=== PATIENT | female | born 1995 | race Caucasian/White ===

== ENCOUNTER 2025-02-17 18:32 | Emergency (ER) | payer BC, SELFPAY ==
--- NOTE | 2025-02-17 18:35 | ED_ITS ---
HPI - Nausea/Vomiting/Diarrhea General Chief complaint: Nausea/Vomiting/Diarrhea Stated complaint: DIARRHEA Time Seen by Provider: 02/17/25 18:34 Source: patient Mode of arrival: ambulatory Limitations: no limitations History of Present Illness HPI Narrative: Patient is a 29-year-old female who presents with diarrhea for 4 days. Patient states today diarrhea has decreased to 3-4 episodes only verses every 1-2 hours the last few days. Patient has not had any nausea or vomiting. Has had fever and chills. Has been has the same symptoms. Related Data Allergies Allergy/AdvReac Type Severity Reaction Status Date / Time No Known Allergies Allergy Verified 02/17/25 18:43 Review of Systems Review of Systems: All systems reviewed & are unremarkable except as noted in HPI and below Constitutional: Constitutional: Denies body ache(s), Reports chills, Denies fatigue, Reports fever(s), Denies headache(s), Denies malaise and Denies weakness Eyes: Eyes: Denies blurry vision, Denies irritation and Denies loss of vision ENT: Denies otalgia, Denies headache(s), Denies nasal discharge, Denies sinus pain and Denies sore throat Cardiovascular: Cardiovascular: Denies chest pain, Denies irregular heart rhythm and Denies dyspnea Respiratory: Respiratory: Denies dyspnea Gastrointestinal: Gastrointestinal: Denies abdominal pain, Denies melena, Denies hematochezia, Reports diarrhea, Denies nausea and Denies vomiting Musculoskeletal: Musculoskeletal: Denies back pain, Denies myalgias and Denies arthralgias Integumentary/Breasts: Skin/Breast: Denies pruritus and Denies rash Neurologic: Denies headache(s), Denies loss of vision and Denies weakness Psychiatric: Psychiatric: Reports no additional psychiatric complaints Endocrine: Endocrine: Denies fatigue PMFSH Family History Family History Sibling Malignant neoplasm of prostate Patient's brother is Grandparent Family history of lung cancer Family history of malignant neoplasm of breast Mother Family history of heart disease in male family member before age 55 Other Family history of lymphoma Social History Social History Smoking status: Never smoker Alcohol intake: never Comments At time of signature, agree with nursing past medical, surgical, social and family history. There is no relevant family history pertinent to the presenting complaint. Exam Const: General: cooperative, healthy appearing, comfortable, no acute distress and well nourished Nutritional Appearance: well nourished Orientation/consciousness: patient oriented x3 Limitations: no limitations HENMT: Head: normal to inspection, normocephalic and atraumatic Ears: hearing grossly normal bilaterally and external ears normal Face/Nose/Sinus: Normal external nose present, normal facial exam and face symmetric Face and sinus: normal facial exam and face symmetric Mouth: Yes lip normal Eyes: General: appearance normal, both eyes and all related structures Alignment and Position: alignment normal and position normal Periorbital: periorbital findings normal Eyelids: eyelids normal Pupils: Equal, round and reactive pupils present EOM: EOMs intact bilaterally Neck: Neck: normal visual inspection, full ROM and supple Chest: Chest palpation & inspection: normal inspection of the chest Resp: Effort & Inspection: normal respiratory effort and able to speak in complete sentences Auscultation: clear to auscultation bilaterally Cardio: Rate: regular rate Rhythm: regular rhythm Heart sounds: S1 normal heart sound present and S2 normal heart sound present GI: Inspection: normal to inspection Skin: General skin exam: normal color and no rashes or lesions noted Neuro: General: patient oriented x3 and moves all extremities Cranial nerves: Yes Equal, round and reactive pupils present Speech: normal speech Gait exam (Neuro): Normal gait present Extrem: General: normal to inspection, full ROM and no edema Psych: Appearance: grossly normal and well kempt Mental Status: mental status grossly normal Speech and movement: Normal speech and movement present Affect: normal affect Attitude: cooperative Thought process: Normal thought process present Course Course Emergency Course: Patient is aware of diagnosis, understands and agrees to treatment plan. Anticipatory guidance given. Patient agrees to follow-up as directed and is aware of reasons to seek care at the emergency department. Portions of this record may have been created with voice recognition software Level of Care: Express Care Visit Vital Signs Vital signs: Reviewed MDM - Nausea/Vomiting/Diarrhea MDM Narrative Medical decision making narrative: Will prescribe Bentyl to help with abdominal cramping. Patient states she took 1 dose Imodium but encourage patient to continue to take Imodium or frequently as she has now showed the virus. Encourage electrolyte intake. Pt well hydrated appearing, in no respiratory distress, hemodynamically stable. Recommend supportive care. The patient is stable at time of discharge the clinical impression was discussed and the patient was given the opportunity to ask questions, which were addressed as completely as possible given the information available at present. Anticipatory guidance and return to care precautions were discussed and the importance of primary care follow-up was stressed and encouraged. The patient voiced understanding of the plan, indications to return, and the need for follow-up. Exam findings show no acute concerns or changes Patient is appropriate for outpatient treatment and follow-up. Differential Diagnosis Differential diagnosis: Likely traveler's diarrhea, food poisoning, gastroenteritis and dehydration Discharge Plan Discharge Clinical Impression: Gastroenteritis Patient Disposition: Home Condition: Stable Instructions: Gastroenteritis (ED) Additional Instructions: Stay hydrated. Take small sips of fluid containing electrolytes frequently(Body Guthrie, Gatorade, Powerade, liquid IV). Eat small meals that her very bland including bananas, applesauce, rice, toast, boiled or grilled chicken, soup. Do not eat anything fried, spicy or overly acidic. You should go to the hospital if you experience return of persistent nausea and vomiting that does not resolve and does not allow you to tolerate any food or fluids, persistent fevers for greater than 2-3 more days, increasing abdominal pain that persists despite medications, persistent diarrhea, dizziness, syncope (fainting), or for any other concerns. Patient Language: Citizen Of [place] Prescriptions: New dicyclomine 20 mg tablet 20 mg PO QID 7 Days Qty: 28 0RF Follow-up/Referrals: Ruben Alcantara MD [Physician, Family Practice] - 3 Days Referral Note: Establish care Time of Disposition: 18:59
[2025-02-17 18:43] VITALS: BP 120/83; PULSE 103; RESP 16; TEMP 36.4; O2SAT 100
== END 2025-02-17 19:03 | disposition home or self-care (01) ==
PROVIDERS: Emergency Provider Nurse Practitioner Family
DX: K52.9 Noninfective gastroenteritis and colitis, unspecified (principal)
CPT/HCPCS: 99203; G0463

== ENCOUNTER 2025-02-24 19:28 | Emergency (ER) | payer BC, SELFPAY ==
[2025-02-24] VITALS (23 sets, daily range): BP systolic 123–147; BP diastolic 70–102; PULSE 97–155; RESP 18–35; TEMP 37–38.2; O2SAT 96–100
--- NOTE | ~2025-02-24 | XR_ITS ---
XR chest 2V HOSTORY: fever COMPARISON:[ None] FINDINGS: Frontal and lateral views of the chest were obtained. The lungs are clear. The heart size is normal in size. Pulmonary vasculature is unremarkable. Osseous structures are intact. IMPRESSION: No acute lung findings.] [ ] Reviewed, dictated and finalized at location S.
--- NOTE | ~2025-02-24 | CT_ITS ---
CT abdomen pelvis w con INDICATION:fever, abd pain, flank pain . COMPARISON: None. TECHNIQUE: Axial images of the abdomen and pelvis were obtained following infusion of 100 mL Isovue 300. Dose optimization technique was utilized. FINDINGS: The lung bases are clear. The liver parenchyma is unremarkable. No intrahepatic mass or ductal dilatation is evident. The gallbladder is unremarkable. The pancreas and spleen are normal in appearance. The adrenal glands are symmetric in size. The kidneys demonstrate symmetric uptake and excretion of contrast. No cystic mass is evident. There is no solid mass. There is no hydronephrosis. Evaluation of the stomach and bowel loops are limited due to lack of oral contrast. There are no bowel obstruction. Appendix is not seen. The bladder and rectum are normal. Endometrium is thickened. There are fluid the pelvis. Cystic right adnexa measures 2.6 cm. No free intraperitoneal fluid or air is evident. Multiple pericecal lymph nodes are noted. The aorta, visceral vessels and renal arteries demonstrate normal caliber and patency. The lower thoracic and lumbar vertebrae are in normal alignment. IMPRESSION: Appendix is not visualized. Multiple pericecal lymph nodes are noted. There free fluid in the pelvis with a cystic right adnexa measuring 2.[address] scans at this facility are performed using low dose modulation techniques as appropriate to perform exam including the following: automated exposure control; use of iterative reconstruction technique; adjustment of the mA and/or kV according to patient size (this includes techniques or standardized protocols for targeted exams where dose is matched to indication/reason for exam). Reviewed, dictated and finalized at location S. IMPRESSION: Appendix is not visualized. Multiple pericecal lymph nodes are noted. There free fluid in the pelvis with a cystic right adnexa measuring 2.[address] scans at this facility are performed using low dose modulation techniqu es as appropriate to perform exam including the following: automated exposure c ontrol; use of iterative reconstruction technique; adjustment of the mA and/or kV according to patient size (this includes techniques or standardized protocol s for targeted exams where dose is matched to indication/reason for exam).
--- OUTSIDE RECORDS SUMMARY | 2025-02-24 19:31 | XMS_ITS | Clinical Summary ---
Author Organization [facility] Address [address] [place] [address] Care Team Providers Care Vice President Of Operations Name Role Phone Dana Mata MD Unavailable [phone] Source Comments [facility],non-owned Affiliates and Associated Physician Practices is amultiple site organization consisting of ambulatory clinics and hospital sitesin [place], [place], [place] and [place]. This disclosure is being madepursuant to the Care Everywhere program and may not contain all information available regarding this patient. Last updated 18.[facility] Allergies No known active allergies Medications * Be aware that medications may not be up to date on this document. Alwaysverify current medications with the patient. norethin-eth estradiol-FE () 1.5-30 MG-MCG tablet Take 1 (one) tablet by mouth once daily 84 tablet 4 08/12/2022 Active escitalopram (Lexapro) 10 MG tablet Take 1 (one) tablet by mouth once daily 90 tablet 11/27/2023 Active Active Problems Problem Noted Date Diagnosed Date Anxiety 08/15/2021 Resolved Problems Problem Noted Date Diagnosed Date Resolved Date Cough 07/31/2009 08/15/2021 Immunizations Immunization Administration Dates Next Due HPV VACCINE 11/09/2019,07/10/2019,05/11/2009 INFLUENZA VACCINE, QUADR. (F LUZONE; FLULAVAL; FLUARIX; AFLURIA QUADRIVALENT; 6MO+), 0.5 ML (IIV4) 03/13/2020 Family History Medical History Relation Name Comments Allergies Father Cancer - Ovarian Maternal Aunt 1 Lymphoma Maternal Aunt 2 Lung Disease Maternal Aunt 3 Asthma Maternal Grandmother CVA Maternal Grandmother Cancer - Prostate Maternal Uncle Allergies Mother Arthritis - Rheumatoid Mother Autoimmune Disease Mother Fibromyal stuart Hypertension Mother Lupus Mother Allergies Other cousin Asthma Other cousin CAD (Coronary Artery Disease) Paternal Grandfather Cancer - Bladder Paternal Grandfather Diabetes - Type 2 Paternal Grandfather Emphysema Paternal Grandfather High Cholesterol Paternal Grandmother Other - Defects Neg Hx Relation Name Status Comments Father Alive Maternal Aunt 1 Maternal Aunt 2 Maternal Aunt 3 Maternal Grandfather Maternal Grandmother Maternal Uncle Mother Alive Other cousin Alive Paternal Grandfather Paternal Grandmother Social History Tobacco Use Types Packs/Day Years Used Date Smoking Tobacco: Never Smokeless Tobacco: Never Alcohol Use Standard Drinks/Week Comments Not Currently 0 (1 standard drink = 0.6 oz pur e alcohol) AUDIT-C Answer Date Recorded Q1: How often do you have a drink containing alc ohol? 2-4 times a month 03/13/2020 Q2: How many drinks containi ng alcohol do you have on a typical day when you are drinking? 3 or 4 03/13/2020 Q3: How often do you have si x or more drinks on one occasion? 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 Not on file Not on file Not on file Last Filed Vital Signs Vital Sign Reading Time Taken Comments Blood Pressure 102/78 08/12/2022 10:06 AM CDT Pulse 90 08/22/2009 9:35 AM CDT Temperature - - Respiratory Rate 20 08/22/2009 9:35 AM CDT Oxygen Saturation 100% 08/22/2009 9:35 AM CDT Inhaled Oxygen Concentration - - Weight 104.8 kg (231 lb) 08/12/2022 10:06 AM CDT Height 167.6 cm (5' 6) 08/12/2022 10:06 AM CDT Body Mass Index 37.28 08/12/2022 10:06 AM CDT Plan of Treatment Health Maintenance Due Date Last Done Comments HIV SCREENING 2009 DTAP/TDAP/TD VACCINES (1 - Tdap) 2013 HEPATITIS B VACCINE (1 of 3 - 19+ 3-dose series) 2013 DEPRESSION SCREENING 05/11/2024 08/12/2022, 08/15/2021 COVID-19 VACCINE (1 - 2023-2 5 season) 2025 INFLUENZA VACCINE (#1) 2025 03/13/2020 PAP SMEAR 08/12/2025 08/12/2022, 08/12/2022, 03/13/2020 ZOSTER VACCINE (1 of 2) 2044 HPV VACCINE Completed 11/09/2019, 07/10/2019, 05/11/2009 HEPATITIS C SCREENING Completed 06/11/2020 HIB VACCINE Aged Out No longer eligi ble based on patient's age to complete this topic MENINGOCOCCAL (Group B) VACCINE SHARED DECISION-MAKING Aged Out No longer eligible based on patient's age to complete this topic MENINGOCOCCAL GROUPS A/C/Y/W VACCINE Aged Out No longer eligible b ased on patient's age to complete this topic PNEUMOCOCCAL VACCINE Aged Out No long er eligible based on patient's age to complete this topic Procedures Procedure Name Priority Date/Time Associated Diagnosis Comments PAP CERVICAL CANCER SCREEN APT Routine 08/12/2022 10:11 AM CDT Well woman exam with routine gynecological exam from Last 3 Months or Most Recently Relevant to Health Maintenance Results * PAP CERVICAL CANCER SCREEN APT (08/12/2022 10:11 AM CDT) Age Gdln ACOG Testing 21-29 [facility] INSURANCE BILL ENTIRE ENDOCERVIX / Unknown 08/12/2022 10:11 AM CDT 08/13/2022 Narrative [facility] - 08/19/2022 3:09 PM CDT Source.............Cervix;Endocervix LMP / Prev Treat...NVW=[id number] No. of containers..01 ThinPrep Vial Resulting Agency Comment Lab Testing performed at: [address] [place] [id number] [place] Dana Mata MD LAB - PATHOLOGY/CYTOLOGY ORD ERABLES Final Result [facility] INSURANCE BILL [address] [place] [address] from Last 3 Months or Most Recently Relevant to Health Maintenance Insurance [employer] Care Teams Vice President Of Operations Relationship Specialty Start Date End Date Dana Mata MD [address] [facility] [address] [place] [id number] Obstetrics and Gynecology 08/12/22
--- OUTSIDE RECORDS SUMMARY | 2025-02-24 19:31 | XMS_ITS | Clinical Summary ---
Author Organization [facility] Address [address] [place] [address] Care Team Providers Care Muffler Installer Name Role Phone No, Physician Primary Care Provider [phone] Allergies No known active allergies Medications ibuprofen (ADVIL,MOTRIN) 800 mg tablet Take 1 tablet (800 mg total) by mouth every 6 (six) hours as needed 06/11/2020 Active multivit with min #[id number] (DEKAS PLUS) 200 mcg-1,000 mcg-10 mg capsule Take by mouth Active Active Problems Problem Noted Date Diagnosed Date RLQ abdominal pain 01/19/2025 RLQ abdominal mass 01/19/2025 Encounters Date Type Department Care Team Description 01/25/2025 1:45 PM CDT Office Visit [facility] [address] [place] [phone] Danette Landers MD PhD Right hip pain (Primary Dx); Left hip pain 01/25/2025 1:00 PM CDT Clinical Support [facility] [address] [place] [phone] RLQ abdominal pain (Primary Dx); RLQ abdominal mass; Abdominal pain, right lower quadrant; Right lower quadrant abdominal mass 01/25/2025 Results Follow-Up [facility] [address] [place] [phone] Lindsey Nicholas MA US Pelvis Complete 11/30/2024 Telephone [facility] [address] [place] [phone] Danette Landers MD PhD US order 11/30/2024 Telephone [facility] [address] [place] [phone] Deepthi Desai 11/28/2024 10:30 AM CDT Office Visit [facility] [address] [phone] Merissa Vital, [facility] Abdominal pain, right lower quadrant (Primary Dx); Right lower quadrant abdominal mass from Last 3 Months Immunizations Immunization Administration Dates Next Due HPV, Unspecified 11/09/2019,07/10/2019, 0 Influenza, Quadrivalent, Spl it, Preservative Free, Intramuscular 03/13/2020 Family History Medical History Relation Name Comments Fibromyalgia Mother Lupus Mother Rheum arthritis Mother Breast cancer Mother's Sister Ovarian cancer Mother's Sister Bladder Cancer Paternal Grandfather Relation Name Status Comments Mother Mother's Sister Paternal Grandfather Social History Tobacco Use Types Packs/Day Years Used Date Smoking Tobacco: Never Tobacco Cessation:Counseling Given: Not Answered AUDIT-C Answer Date Recorded Q1: How often do you have a drink containing alc ohol? 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 Gender Identity Not on file Sexual Orientation Not on file Obstetrics History Para Term AB IAB SAB Ectopic Multiple Livin g Live Births 0 0 0 0 0 0 0 0 0 0 0 Last Filed Vital Signs Vital Sign Reading Time Taken Comments Blood Pressure 124/78 01/25/2025 1:32 PM CDT Pulse - - Temperature - - Respiratory Rate - - Oxygen Saturation - - Inhaled Oxygen Concentration - - Weight 111.1 kg (245 lb) 01/25/2025 1:32 PM CDT Height 167.6 cm (5' 6) 01/25/2025 1:32 PM CDT Body Mass Index 39.54 01/25/2025 1:32 PM CDT Plan of Treatment Health Maintenance Due Date Last Done Comments Cervical Cancer Screening 1994 Depression Screening 1994 Hepatitis C Screening 1994 DTaP/Tdap/Td Vaccine (1 - Tdap) 2005 Varicella Vaccines (1 of 2 - 13+ 2-dose series) 11/01/2007 Hepatitis B Screening 2012 Influenza Vaccine (#1) 2025 03/13/2020 Regular Well Visit/Exam 18-64 06/15/2025 06/15/2024 HPV Vaccines Completed 11/09/2019, 07/10/2019, 05/11/2009 Pneumococcal vaccine <65 Aged Out No longer eligible based on patient's age to complete this topic Procedures Procedure Name Priority Date/Time Associated Diagnosis Comments US TRANSVAGINAL Schedule Routine, Read Routine (OP Routine) 01/26/2025 3:24 PM CDT RLQ abdominal pain RLQ abdominal mass from Last 3 Months Insurance [employer] Care Teams Muffler Installer Relationship Specialty Start Date End Date No, Physician PCP - General 04/19/24
--- OUTSIDE RECORDS SUMMARY | 2025-02-24 19:31 | XMS_ITS | Encounter Summary ---
Author Organization [facility] Address [address] [place] [address] Care Team Providers Care Radio Director Name Role Phone No, Physician Primary Care Provider [phone] Encounter Details Date Type Department Care Team ([facility] st Contact Info) Description 01/25/2025 Results [facility] [address] [phone] Lindsey Nicholas MA US Pelvis Complete Social History Tobacco Use Types Packs/Day Years Used Date Smoking Tobacco: Never AUDIT-C Answer Date Recorded Q1: How often do you have a drink containing alc ohol? 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
--- NOTE | 2025-02-24 19:50 | ECG_ITS ---
Test Date: 2025-02-24 19:57:15 Measurements Intervals [place] Rate: 139 P: 33 HI: 140 QRS: 1 QRSD: 90 T: 21 QT: 329 QTc: 501 Interpretive Statements SINUS TACHYCARDIA INCOMPLETE RIGHT BUNDLE BRANCH BLOCK MINIMAL Q WAVES- HIGH LATERAL LEADS POSSIBLE ANTERIOR MYOCARDIAL INFARCTION , OF INDETERMINATE AGE BORDERLINE T WAVE ABNORMALITY- INFERIOR LEADS ABNORMAL ECG No previous ECG available for comparison Electronically Signed On 02-24-2025 20:42:31 CDT by Jad Duke D.O.
--- NOTE | 2025-02-24 20:01 | ED.FEVER ---
HPI - Fever General Chief Complaint: Arrhythmia/Palpitations Stated Complaint: flu symptoms Time Seen by Provider: 02/24/25 19:50 Source: patient Mode of arrival: ambulatory Limitations: no limitations History of Present Illness HPI Narrative: This is a 29-year-old female that presents to the emergency department for fevers. Reports last week she had several days of diarrhea. This had resolved. Today she has been experiencing fever, chills. Feeling generally unwell. Also endorses flank pain. Denies current abdominal pain, vomiting. Related Data Allergies Allergy/AdvReac Type Severity Reaction Status Date / Time No Known Allergies Allergy Verified 02/17/25 18:43 Review of Systems Review of Systems: All systems reviewed & are unremarkable except as noted in HPI and below PMFSH Family History Family History Sibling Malignant neoplasm of prostate Patient's brother is Grandparent Family history of lung cancer Family history of malignant neoplasm of breast Mother Family history of heart disease in male family member before age 55 Other Family history of lymphoma Social History Social History Smoking status: Never smoker Alcohol intake: never Exam Narrative: GENERAL: Ill-appearing, well-nourished, and in no acute distress. HEAD: Normocephalic, atraumatic. EYES: EOMI. ENT: Nares clear, no rhinorrhea or epistaxis. Mucous membranes moist. Oropharynx without tonsillar hypertrophy exudate or other lesions. CHEST: Clear to auscultation. No respiratory distress. No wheezes rales or rhonchi HEART: Regular rate and rhythm. No murmur heard. Normal peripheral pulses. ABDOMEN: Soft, nontender, nondistended, normal active bowel sounds. EXTREMITIES: Normal range of motion. No edema. SKIN: Warm, dry, no rash. NEURO: No focal deficits. Alert and oriented x3. PSYCH: Normal mood and affect Course Vital Signs Vital signs: Vital Signs Temperature 100.7 F H 02/24/25 19:45 Pulse Rate 155 H 02/24/25 19:45 Respiratory Rate 18 02/24/25 19:45 Blood Pressure 147/94 H 02/24/25 19:45 Pulse Oximetry 100 02/24/25 19:45 Oxygen Delivery Room Air 02/24/25 19:45 Temperature 98.6 F 02/24/25 23:55 Pulse Rate 103 H 02/25/25 00:01 Respiratory Rate 21 H 02/25/25 00:01 Blood Pressure 140/86 02/25/25 00:01 Pulse Oximetry 97 02/25/25 00:15 Oxygen Delivery Room Air 02/24/25 19:45 MDM - Fever MDM Narrative Medical decision making narrative: Patient presents to the ER for fever, chills. Febrile and tachycardic upon arrival to the ER, this normalized with IV fluids and antipyretic. Cbc without leukocytosis. Metabolic panel without concerning findings. Lactic acid is not elevated. Urine with possible evidence of infection. This was sent for culture. Patient started on IV antibiotics. test negative. Influenza, RSV and COVID screens are negative. Strep screen negative. Chest x-ray without acute cardiopulmonary abnormality. CT abdomen and pelvis showing a small right ovarian cyst. Patient updated on her workup and agrees plan of care. We spoke about further inpatient management versus discharge home, patient would like to trial outpatient therapy with oral antibiotics. She was given warnings to return to the ER Differential Diagnosis Differential diagnosis: Likely fever of unknown origin, gastroenteritis, community acquired pneumonia, pyelonephritis, viral infection, sepsis and influenza Lab Data Attestation: I reviewed the patient's lab results. 02/24/25 20:10 02/24/25 20:10 Labs: Lab Results 02/24/25 02/24/25 02/24/25 Range/Units 20:10 20:30 20:49 WBC 9.2 (4.5-10.0) K/mm3 RBC 4.31 (4.2-5.4) M/mm3 Hgb 13.1 (12.0-15.0) g/dL Hct 38.6 (37.0-47.0) % MCV 89.6 (80-100) fl MCH 30.4 (26-34) pg MCHC 33.9 (32-36) g/dl RDW 12.2 (11.5-14.5) % Plt Count 276 (150-375) k/mm3 MPV 8.9 (7.4-10.4) fl Immature Gran % (Auto) 1.2 H (0-0.5) % Neut % (Auto) 76.1 H (45.5-73.1) % Lymph % (Auto) 13.3 L (18.3-44.2) % Atkinson % (Auto) 8.9 H (2.6-8.5) % Eos % (Auto) 0.1 (0-4.4) % Baso % (Auto) 0.4 (0.2-1.2) % Lymph # (Auto) 1.23 (0.9-3.2) K/mm3 Atkinson # (Auto) 0.8 H (0.1-0.6) K/mm3 Eos # (Auto) 0.0 (0-0.3) K/mm3 Baso # (Auto) 0.0 (0.0-0.1) K/mm3 Abs Immat Gran (auto) 0.11 H (0.00-0.031) K/mm3 Absolute Neuts (auto) 7.0 H (1.3-6.7) K/mm3 Absolute Nucleated RBC 0.000 (0.0-0.012) K/mm3 Nucleated RBC % 0.0 (0.0-0.2) % PT 12.8 (11.1-14.7) Seconds INR 1.0 APTT 34.5 (22.3-36.8) Seconds Sodium 132 L (137-145) mmol/L Potassium 3.7 (3.4-5.0) mmol/L Chloride 98 (98-107) mmol/L Carbon Dioxide 25 (22-30) mmol/L Anion Gap 9 (4-12) mmol/L BUN 11 (7-17) mg/dL Creatinine 0.82 (0.7-1.0) mg/dL Estim Creat Clear Calc 108 ml/min Estimated GFR > 60 (59 - ) Glucose 115 H (65-110) mg/dL Lactic Acid 0.8 (0.7-2.0) mmol/L Calcium 9.2 (8.4-10.2) mg/dL Total Bilirubin 0.5 (0.2-1.3) mg/dL AST 33 (14-36) U/L ALT 37 H (6-35) U/L Alkaline Phosphatase 70 (38-126) U/L C-Reactive Protein 6.4 H (<1.0) mg/dL Total Protein 7.7 (6.3-8.2) g/dL Albumin 4.4 (3.5-5.1) g/dL Lipase 61 (23-300) U/L Urine Color Yellow (Yellow) Urine Appearance Cloudy H (Clear) Urine pH 8.5 (5.0-9.0) Ur Specific [place] 1.012 (1.001-1.035) Urine Protein Negative (Negative) mg/dL Urine Glucose (UA) Negative (Negative) mg/dL Urine Ketones Negative (Negative) mg/dL Ur Blood (Man) Negative (Negative) Urine Nitrate Negative (Negative) Urine Bilirubin Negative (Negative) Urine Urobilinogen 0.2 (<2.0) mg/dL Leukocyte Esterase Rfl 1+ H (Negative) BENJI/UL Urine RBC 3-5 H (0-2) /hpf Urine WBC 6-10 H (0-3) /hpf Ur Squamous Epith Cells None seen (Few) /hpf Urine Bacteria None seen /hpf Urine Casts 0-2 POC Urine HCG, Qual (Negative) Monoscreen Negative (Negative) Influenza A (RT-PCR) Negative (Negative) Influenza B (RT-PCR) Negative (Negative) RSV (RT-PCR) Negative (Negative) SARS-CoV-2 RNA (RT-PCR) Negative (Negative) Group A Strep (PCR) (Negative) 02/24/25 02/24/25 Range/Units 21:09 23:11 WBC (4.5-10.0) K/mm3 RBC (4.2-5.4) M/mm3 Hgb (12.0-15.0) g/dL Hct (37.0-47.0) % MCV (80-100) fl MCH (26-34) pg MCHC (32-36) g/dl RDW (11.5-14.5) % Plt Count (150-375) k/mm3 MPV (7.4-10.4) fl Immature Gran % (Auto) (0-0.5) % Neut % (Auto) (45.5-73.1) % Lymph % (Auto) (18.3-44.2) % Atkinson % (Auto) (2.6-8.5) % Eos % (Auto) (0-4.4) % Baso % (Auto) (0.2-1.2) % Lymph # (Auto) (0.9-3.2) K/mm3 Atkinson # (Auto) (0.1-0.6) K/mm3 Eos # (Auto) (0-0.3) K/mm3 Baso # (Auto) (0.0-0.1) K/mm3 Abs Immat Gran (auto) (0.00-0.031) K/mm3 Absolute Neuts (auto) (1.3-6.7) K/mm3 Absolute Nucleated RBC (0.0-0.012) K/mm3 Nucleated RBC % (0.0-0.2) % PT (11.1-14.7) Seconds INR APTT (22.3-36.8) Seconds Sodium (137-145) mmol/L Potassium (3.4-5.0) mmol/L Chloride (98-107) mmol/L Carbon Dioxide (22-30) mmol/L Anion Gap (4-12) mmol/L BUN (7-17) mg/dL Creatinine (0.7-1.0) mg/dL Estim Creat Clear Calc ml/min Estimated GFR (59 - ) Glucose (65-110) mg/dL Lactic Acid (0.7-2.0) mmol/L Calcium (8.4-10.2) mg/dL Total Bilirubin (0.2-1.3) mg/dL AST (14-36) U/L ALT (6-35) U/L Alkaline Phosphatase (38-126) U/L C-Reactive Protein (<1.0) mg/dL Total Protein (6.3-8.2) g/dL Albumin (3.5-5.1) g/dL Lipase (23-300) U/L Urine Color (Yellow) Urine Appearance (Clear) Urine pH (5.0-9.0) Ur Specific [place] (1.001-1.035) Urine Protein (Negative) mg/dL Urine Glucose (UA) (Negative) mg/dL Urine Ketones (Negative) mg/dL Ur Blood (Man) (Negative) Urine Nitrate (Negative) Urine Bilirubin (Negative) Urine Urobilinogen (<2.0) mg/dL Leukocyte Esterase Rfl (Negative) BENJI/UL Urine RBC (0-2) /hpf Urine WBC (0-3) /hpf Ur Squamous Epith Cells (Few) /hpf Urine Bacteria /hpf Urine Casts POC Urine HCG, Qual Negative (Negative) Monoscreen (Negative) Influenza A (RT-PCR) (Negative) Influenza B (RT-PCR) (Negative) RSV (RT-PCR) (Negative) SARS-CoV-2 RNA (RT-PCR) (Negative) Group A Strep (PCR) Not detected (Negative) Imaging Data Radiologist's impression: ITS Impressions Chest X-Ray 02/24/25 20:24 IMPRESSION: No acute lung findings.] [ ] Abdomen/Pelvis CT 02/24/25 21:45 IMPRESSION: Appendix is not visualized. Multiple pericecal lymph nodes are noted. There free fluid in the pelvis with a cystic right adnexa measuring 2.[address] scans at this facility are performed using low dose modulation techniques as appropriate to perform exam including the following: automated exposure control; use of iterative reconstruction technique; adjustment of the mA and/or kV according to patient size (this includes techniques or standardized protocols for targeted exams where dose is matched to indication/reason for exam). ECG Data EKG #1: ECG completion date: 02/24/25 EKG Interpretation: tachycardia, sinus rhythm, no ST changes and prolonged QT Critical Care Time Critical Care Time Critical Care Time: No Discharge Plan Discharge Clinical Impression: Acute UTI Ovarian cyst Qualifiers: Laterality: right Qualified Code(s): N83.201 - Unspecified ovarian cyst, right side Patient Disposition: Home Condition: Improved Instructions: Ovarian Cyst (ED), Urinary Tract Infection in Women (ED) Additional Instructions: Return to the ER if you experience fever, abdominal pain with nausea and vomiting, you are unable to keep down liquids or solids, or any other symptoms that are concerning to you Rest. Remain well hydrated. Tylenol or Ibuprofen as needed for pain or fever. Take oral antibiotic as prescribed Follow up with primary care doctor Patient Language: Persian Prescriptions: New cefdinir 300 mg capsule 300 mg PO Q12H 10 Days Qty: 20 0RF No Action dicyclomine 20 mg tablet 20 mg PO QID 7 Days Qty: 28 0RF Follow-up/Referrals: PHYSICIAN,OIL WELL SERVICES SUPERVISOR [Primary Care Provider, Internal Medicine] Josesito Cruz MD [Physician, Family Practice]
[2025-02-24 20:18] LABS: Hematocrit 38.6 % (37.0-47.0); Hemoglobin 13.1 g/dL (12.0-15.0); Immature Granulocyte Percent A 1.2 % (0-0.5); Lymphocytes Absolute Auto 1.23 K/mm3 (0.9-3.2); Mean Corpuscular HGB Conc 33.9 g/dl (32-36); Mean Corpuscular Hemoglobin 30.4 pg (26-34); Mean Corpuscular Volume 89.6 fl (80-100); Nucleated Red Blood Cells Absolute Auto 0.000 K/mm3 (0.0-0.012); Nucleated Red Blood Cells Perc 0.0 % (0.0-0.2); Platelet Count Result 276 k/mm3 (150-375); Red Blood Count 4.31 M/mm3 (4.2-5.4); White Blood Count 9.2 K/mm3 (4.5-10.0)
[2025-02-24 20:30] LABS: INR 1.0; Prothrombin Time 12.8 Seconds (11.1-14.7)
[2025-02-24 20:31] LABS: Partial Thromboplastin Time 34.5 Seconds (22.3-36.8)
[2025-02-24 20:32] LABS: Alanine Aminotransferase 37 U/L (6-35); Albumin Level 4.4 g/dL (3.5-5.1); Alkaline Phosphatase 70 U/L (38-126); Anion Gap 9 mmol/L (4-12); Aspartate Amino Transferase 33 U/L (14-36); Bilirubin,Total 0.5 mg/dL (0.2-1.3); Blood Urea Nitrogen 11 mg/dL (7-17); CRP 6.4 mg/dL (<1.0); Calcium 9.2 mg/dL (8.4-10.2); Carbon Dioxide 25 mmol/L (22-30); Chloride 98 mmol/L (98-107); Estimated CRCL calculation 108 ml/min; Estimated Glomerular Filt Rate > 60; Glucose 115 mg/dL (65-110); Lipase 61 U/L (23-300); Potassium 3.7 mmol/L (3.4-5.0); Sodium 132 mmol/L (137-145); Total Protein 7.7 g/dL (6.3-8.2)
--- OUTSIDE RECORDS SUMMARY | 2025-02-24 20:34 | XMS_ITS | Encounter Summary ---
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
--- OUTSIDE RECORDS SUMMARY | 2025-02-24 20:34 | XMS_ITS | Clinical Summary ---
Author Organization [facility] Address [address] [place] [address] Care Team Providers Care Bacteriology Teacher Name Role Phone Dana Mata MD Unavailable [phone] Source Comments [facility],non-owned Affiliates and Associated Physician Practices is amultiple site organization consisting of ambulatory clinics and hospital sitesin [place], [place], [place] and [place]. This disclosure is being madepursuant to the Care Everywhere program and may not contain all information available regarding this patient. 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 of containers..01 ThinPrep Vial Resulting Agency Comment Lab Testing performed at: [address] [place]ARIAS [id number] us Dana Mata MD LAB - PATHOLOGY/CYTOLOGY ORD ERABLES Final Result [facility] INSURANCE BILL [address] [place] [address] from Last 3 Months or Most Recently Relevant to Health Maintenance Insurance [employer] Care Teams Bacteriology Teacher Relationship Specialty Start Date End Date Dana Mata MD [address] [facility] [address] [place] [address] Obstetrics and Gynecology 08/12/22
--- OUTSIDE RECORDS SUMMARY | 2025-02-24 20:34 | XMS_ITS | Clinical Summary ---
Author Organization [facility] Address [address] [place] [address] Care Team Providers Care Factory Lay Out Engineer Name Role Phone No, Physician Primary Care Provider [phone] Allergies No known active allergies Medications ibuprofen [...] PM CDT [facility] at [address] [place] [phone] Danette Landers MD PhD Right hip pain (Primary Dx); Left hip pain 01/25/2025 1:00 PM CDT Clinical Support [facility] at [address] [place] [phone] RLQ abdominal pain (Primary Dx); RLQ abdominal mass; Abdominal pain, right lower quadrant; Right lower quadrant abdominal mass 01/25/2025 Results [facility] at [address] [place] [phone] Lindsey Nicholas MA US Pelvis Complete 11/30/2024 Telephone [facility] [address] [place] [phone] Danette Landers MD PhD US order 11/30/2024 Telephone [facility] [address] [place] [phone] Deepthi Desai 11/28/2024 10:30 AM CDT [facility] at [address] [phone] Merissa Vital, CLINT Abdominal pain, [...] on file 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
[2025-02-24 21:01] LABS: Add Urine Microscopic? YES; Appearance Urine Cloudy (Clear); Glucose Urine UA Negative (Negative); Leukocyte Esterase Ur 1+ LEU/UL (Negative); Nitrate Urine Negative (Negative); Non Pathogenic Casts 0-2; Specific Grav Ur 1.012 (1.001-1.035)
[2025-02-24] MEDS: SODIUM CHLORIDE 0.9% IV 1,000 ML 999 ML IV CONT (21:03)
[2025-02-24] MEDS: LACTATED RINGERS 1,000 ML 999 ML IV CONT ×2 (21:04→23:10)
[2025-02-24] MEDS: ACETAMINOPHEN 500 MG TABLET 1000 MG PO (21:04)
[2025-02-24 21:12] LABS: BEDSIDEPREGUCG Negative (Negative)
[2025-02-24 21:30] LABS: Influenza A QL RT-PCR Negative (Negative); Influenza B QL RT-PCR Negative (Negative); RSV RNA, RT-PCR Negative (Negative); SARS-CoV-2 RNA PCR Negative (Negative)
[2025-02-24 23:06] LABS: Negative Monotest Control Negative (Negative); Positive Monotest Control Positive (Positive)
[2025-02-24] MEDS: cefTRIAXone 1 GM in SODIUM CHLORIDE 0.9% IV 50 ML 100 ML IVPB (23:10)
[2025-02-24 23:42] LABS: Strep Group A RT-PCR NOT DETECTED (Negative)
[2025-02-25] VITALS: PULSE 96; RESP 23; O2SAT 97
[2025-02-25 00:01] VITALS: BP 140/86; PULSE 103; RESP 21; O2SAT 100
[2025-02-25 00:15] VITALS: O2SAT 97
[2025-02-25] MEDS: KETOROLAC 15 MG/ML VIAL (*BKC) IV PUSH (00:25)
--- NOTE | 2025-02-25 23:12 | PC.NURSE ---
Call received from lab of positive blood culture result in anaerobic bottle. Result faxed to PMD Dr. Cruz. This mortgage loan underwriter notified ED provider, Nila Estevez, of this positive result. Nila requested that this mortgage loan underwriter notify patient of result and ask that she return to ED for additional antibiotic treatment if symptoms not improving. I attempted to notify patient at [phone] and [phone] with numbers provided in medical record. Message left for patient to return call to this mortgage loan underwriter.
== END 2025-02-25 | disposition home or self-care (01) ==
PROVIDERS: Emergency Provider Physician Assistant
DX: N39.0 Urinary tract infection, site not specified (principal); N83.201 Unspecified ovarian cyst, right side; Z20.822 Contact with and (suspected) exposure to COVID-19; R00.0 Tachycardia, unspecified; I45.10 Unspecified right bundle-branch block; R94.31 Abnormal electrocardiogram [ECG] [EKG]
CPT/HCPCS: 36415; 71046; 74177; 80053; 81001; 81025; 83605; 83690; 85025; 85610; 85730; 86140; 86308; 87040; 87086; 87186; 87637; 87651; 93005; 96361; 96365; 96375; 99284; A9270; J0696; J1885; J7030; J7120; Q9967

== ENCOUNTER 2025-02-26 08:17 | Inpatient (IN) | payer BC, SELFPAY ==
--- NOTE | ~2025-02-26 | CT_ITS ---
EXAMINATION: CT brain wo con COMPARISON: None HISTORY: Persistent headache TECHNIQUE: Axial images were obtained through the brain without IV contrast. CT scan performed using dose optimization techniques including the following automated exposure control; adjustment of mA and/or kV; use of iterative reconstruction technique. Automatic exposure control was used to reduce radiation dose. Permanent radiation dose record is archived to PACS. FINDINGS: No acute infarct or parenchymal hemorrhage. No abnormal mass or mass effect. No midline shift. No extra-axial fluid collections. No hydrocephalus. . Mastoid air cells unremarkable. Sinuses and orbits unremarkable. No acute fracture. No significant facial or scalp soft tissue swelling evident. No radiopaque foreign body is seen. Impression: 1.No acute intracranial abnormality. Reviewed, dictated and finalized at location P. Impression: 1.No acute intracranial abnormality.
--- NOTE | ~2025-02-26 | XR_ITS ---
Examination: XR chest 2V Clinical History: Positive blood cultures Comparison: 02/24/2025 Technique: PA and Lateral Findings: Cardiomediastinal silhouette normal size and configuration. Lungs clear. No acute bony abnormality. IMPRESSION: 1. No acute cardiopulmonary findings. Reviewed, dictated and finalized at location R.
--- OUTSIDE RECORDS SUMMARY | 2025-02-26 08:19 | XMS_ITS | Clinical Summary ---
Author Organization [facility] Address [address] [place] [address] Care Team Providers Care Tubing Machine Tender Name Role Phone Dana Mata MD Unavailable [phone] Source Comments [facility],non-owned Affiliates and Associated Physician Practices is amultiple site organization consisting of ambulatory clinics and hospital sitesin [place], [place], [place] and [place]. This disclosure is being madepursuant to the Care Everywhere program and may not contain all information available regarding this patient. 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 of containers..01 ThinPrep Vial Resulting Agency Comment Lab Testing performed at: [address] [place] [id number] us Dana Mata MD LAB - PATHOLOGY/CYTOLOGY ORD ERABLES Final Result [facility] INSURANCE BILL [address] [place] [address] from Last 3 Months or Most Recently Relevant to Health Maintenance Insurance [employer] Care Teams Tubing Machine Tender Relationship Specialty Start Date End Date Dana Mata MD [address] [facility] [address] [place] [address] Obstetrics and Gynecology 08/12/22
--- OUTSIDE RECORDS SUMMARY | 2025-02-26 08:19 | XMS_ITS | Clinical Summary ---
Author Organization [facility] Address [address] [place] [address] Care Team Providers Care Pipe Coverer Name Role Phone No, Physician Primary Care Provider [phone] Allergies No known active allergies Medications ibuprofen [...] PM CDT [facility] at [address] [place] [phone] Danette Landers MD PhD Right hip pain (Primary Dx); Left hip pain 01/25/2025 1:00 PM CDT Clinical Support [facility] at [address] [place] [phone] RLQ abdominal pain (Primary Dx); RLQ abdominal mass; Abdominal pain, right lower quadrant; Right lower quadrant abdominal mass 01/25/2025 Results [facility] at [address] [place] [phone] Lindsey Nicholas MA US Pelvis Complete 11/30/2024 Telephone [facility] at [address] [place] [phone] Danette Landers MD PhD US order 11/30/2024 Telephone [facility] at [address] [place] [phone] Deepthi Desai 11/28/2024 10:30 AM CDT [facility] at [address] [phone] Merissa Vital, CLINT Abdominal pain, [...] on file 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
--- OUTSIDE RECORDS SUMMARY | 2025-02-26 08:19 | XMS_ITS | Encounter Summary ---
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
[2025-02-26 08:32] VITALS: BP 133/93; PULSE 98; RESP 17; TEMP 36.8; O2SAT 100
--- NOTE | 2025-02-26 08:47 | ED_ITS ---
HPI - General Adult General Chief complaint: Recheck/Abnormal Lab/Rx Stated complaint: positive blood cultures Time Seen by Provider: 02/26/25 08:28 History of Present Illness HPI narrative: 29-year-old female presents to the emergency department for evaluation for multiple days body aches fatigue fever and diarrhea. Patient was evaluated in the emergency department few days ago and did have positive blood cultures. Patient states last night she was still having low-grade fevers. Patient's blood culture was positive for Gram-negative bacilli. Related Data Allergies Allergy/AdvReac Type Severity Reaction Status Date / Time No Known Allergies Allergy Verified 02/26/25 12:42 Review of Systems 2 Review of Systems: All systems reviewed & are unremarkable except as noted in HPI and below PMFSH Family History Family History Sibling Malignant neoplasm of prostate Patient's brother is Grandparent Family history of lung cancer Family history of malignant neoplasm of breast Mother Family history of heart disease in male family member before age 55 Other Family history of lymphoma Social History Social History Smoking status: Never smoker Second hand tobacco smoke exposure: No Alcohol intake: never Substance use: never Lack of Transportation: No Lack of Food: Never True Current Housing: I Have Housing Concerned About Future Housing: YES Difficulty Paying Gas/Electric Bills: No Difficulty Paying for Meds: No Currently Unemployed: No Education: Bachelor's Degree Difficulty w/ Childcare or Family Care: No Spiritual care concerns: No Exam 2 Narrative: APPEARANCE: Ill-appearing HEAD: normocephalic, atraumatic. EYES: PERRLA/EOMI, conjunctivae clear. NOSE: Normal no drainage EARS:TMS clear with good light reflex. THROAT: Pharynx clear, no exudate. NECK: Supple. No adenopathy, no masses. RESPIRATORY: Airway patent, respirations nonlabored. Clear to auscultation bilaterally, no rales, rhonchi, wheezing. CARDIOVASCULAR: Regular rate and rhythm without murmurs rubs or gallops. ABDOMINAL: Soft, nontender, nondistended, normal bowel sounds MUSCULOSKELETAL: Moves all extremities. Strength/ROM intact, No edema, No calf tenderness. NEURO: Alert. Cranial nerves II through XII intact. Grossly intact SKIN: Warm, dry. Normal Color Course Vital Signs Vital signs: Vital Signs Temperature 98.2 F 02/26/25 08:32 Pulse Rate 98 02/26/25 08:32 Respiratory Rate 17 02/26/25 08:32 Blood Pressure 133/93 H 02/26/25 08:32 Pulse Oximetry 100 02/26/25 08:32 Temperature 100 F H 02/26/25 14:00 Pulse Rate 99 02/26/25 14:00 Respiratory Rate 18 02/26/25 14:00 Blood Pressure 118/74 02/26/25 14:00 Pulse Oximetry 98 02/26/25 14:00 Oxygen Delivery Room Air 02/26/25 13:02 Medical Decision Making MDM Narrative Medical decision making narrative: 29-year-old female presents to the emergency department for evaluation for positive blood cultures and patient is having low-grade fever, diarrhea body aches and fatigue. Patient's blood cultures were reordered and patient was started cefazolin and vancomycin with blood cultures pending. MRSA swab is also pending. Patient and family are updated on the results the blood cultures and plan for IV antibiotics and admission. All questions and concerns were addressed. Differential Diagnosis Differential Diagnosis: UTI, pneumonia, COVID, RSV influenza, bacteremia, sepsis Vital Signs Vital Signs: Vital Signs Temperature 98.2 F 02/26/25 08:32 Pulse Rate 98 02/26/25 08:32 Respiratory Rate 17 02/26/25 08:32 Blood Pressure 133/93 H 02/26/25 08:32 Pulse Oximetry 100 02/26/25 08:32 Temperature 100 F H 02/26/25 14:00 Pulse Rate 99 02/26/25 14:00 Respiratory Rate 18 02/26/25 14:00 Blood Pressure 118/74 02/26/25 14:00 Pulse Oximetry 98 02/26/25 14:00 Oxygen Delivery Room Air 02/26/25 13:02 Lab Data Lab results reviewed: Yes I reviewed the patient's lab results. 02/26/25 08:47 02/26/25 08:47 Labs: Lab Results 02/26/25 02/26/25 02/26/25 Range/Units 08:47 08:55 09:18 WBC 6.1 (4.5-10.0) K/mm3 RBC 4.29 (4.2-5.4) M/mm3 Hgb 13.0 (12.0-15.0) g/dL Hct 39.4 (37.0-47.0) % MCV 91.8 (80-100) fl MCH 30.3 (26-34) pg MCHC 33.0 (32-36) g/dl RDW 12.6 (11.5-14.5) % Plt Count 252 (150-375) k/mm3 MPV 9.2 (7.4-10.4) fl Immature Gran % (Auto) 1.8 H (0-0.5) % Neut % (Auto) 68.7 (45.5-73.1) % Lymph % (Auto) 22.0 (18.3-44.2) % [place] % (Auto) 6.7 (2.6-8.5) % Eos % (Auto) 0.3 (0-4.4) % Baso % (Auto) 0.5 (0.2-1.2) % Lymph # (Auto) 1.35 (0.9-3.2) K/mm3 [place] # (Auto) 0.4 (0.1-0.6) K/mm3 Eos # (Auto) 0.0 (0-0.3) K/mm3 Baso # (Auto) 0.0 (0.0-0.1) K/mm3 Abs Immat Gran (auto) 0.11 H (0.00-0.031) K/mm3 Absolute Neuts (auto) 4.2 (1.3-6.7) K/mm3 Absolute Nucleated RBC 0.000 (0.0-0.012) K/mm3 Nucleated RBC % 0.0 (0.0-0.2) % PT 12.9 (11.1-14.7) Seconds INR 1.0 APTT 32.5 (22.3-36.8) Seconds Sodium 136 L (137-145) mmol/L Potassium 3.6 (3.4-5.0) mmol/L Chloride 104 (98-107) mmol/L Carbon Dioxide 24 (22-30) mmol/L Anion Gap 8 (4-12) mmol/L BUN 9 (7-17) mg/dL Creatinine 0.67 L (0.7-1.0) mg/dL Estim Creat Clear Calc 133 ml/min Estimated GFR > 60 (59 - ) Glucose 126 H (65-110) mg/dL Lactic Acid 1.0 (0.7-2.0) mmol/L Calcium 9.0 (8.4-10.2) mg/dL Total Bilirubin 0.6 (0.2-1.3) mg/dL AST 42 H (14-36) U/L ALT 40 H (6-35) U/L Alkaline Phosphatase 66 (38-126) U/L C-Reactive Protein 12.7 H (<1.0) mg/dL Total Protein 7.0 (6.3-8.2) g/dL Albumin 3.9 (3.5-5.1) g/dL Nasal MRSA (PCR) Not detected (NOT DETECTE) C. difficile (PCR) Negative (NEGATIVE) Imaging Data My impression: Chest x-ray shows no acute cardiopulmonary abnormality Discharge Plan Discharge Clinical Impression: Bacteremia Patient Disposition: Still a Patient Condition: Serious
--- OUTSIDE RECORDS SUMMARY | 2025-02-26 08:47 | XMS_ITS | Encounter Summary ---
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
--- OUTSIDE RECORDS SUMMARY | 2025-02-26 08:47 | XMS_ITS | Clinical Summary ---
Author Organization [facility] Address [address] [facility] [place] [address] Care Team Providers Care Gang Investigator Name Role Phone Dana Mata MD Unavailable [phone] Source Comments [facility],non-owned Affiliates and Associated Physician Practices is amultiple site organization consisting of ambulatory clinics and hospital sitesin [place], [place], [place] and [place]. This disclosure is being madepursuant to the Care Everywhere program and may not contain all information available regarding this patient. 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 of containers..01 ThinPrep Vial Resulting Agency Comment Lab Testing performed at: [address] Robin ZACARIAS [phone] us Dana Mata MD LAB - PATHOLOGY/CYTOLOGY ORD ERABLES Final Result [facility] INSURANCE BILL [address] [place] [address] from Last 3 Months or Most Recently Relevant to Health Maintenance Insurance [employer] Care Teams Gang Investigator Relationship Specialty Start Date End Date Dana Mata MD [address] [facility] [address] [place] [id number] Obstetrics and Gynecology 08/12/22
--- OUTSIDE RECORDS SUMMARY | 2025-02-26 08:47 | XMS_ITS | Clinical Summary ---
Author Organization [facility] Address [address] [place] [address] Care Team Providers Care Data Analytics Analyst Name Role Phone No, Physician Primary Care Provider [phone] Allergies No known active allergies Medications ibuprofen [...] PM CDT [facility] at [address] [place] [phone] Danette Landers MD PhD Right hip pain (Primary Dx); Left hip pain 01/25/2025 1:00 PM CDT Clinical Support [facility] at [address] [place] [phone] RLQ abdominal pain (Primary Dx); RLQ abdominal mass; Abdominal pain, right lower quadrant; Right lower quadrant abdominal mass 01/25/2025 Results [facility] at [address] [place] [phone] Lindsey Nicholas MA US Pelvis Complete 11/30/2024 Telephone [facility] at [address] [place] [phone] Danette Landers MD PhD US order 11/30/2024 Telephone [facility] at [address] [place] [phone] Deepthi Desai 11/28/2024 10:30 AM CDT [facility] at [address] [phone] Merissa Vital, [place] Abdominal pain, [...] on file 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
[2025-02-26 08:58] LABS: Hematocrit 39.4 % (37.0-47.0); Hemoglobin 13.0 g/dL (12.0-15.0); Immature Granulocyte Percent A 1.8 % (0-0.5); Lymphocytes Absolute Auto 1.35 K/mm3 (0.9-3.2); Mean Corpuscular HGB Conc 33.0 g/dl (32-36); Mean Corpuscular Hemoglobin 30.3 pg (26-34); Mean Corpuscular Volume 91.8 fl (80-100); Nucleated Red Blood Cells Absolute Auto 0.000 K/mm3 (0.0-0.012); Nucleated Red Blood Cells Perc 0.0 % (0.0-0.2); Platelet Count Result 252 k/mm3 (150-375); Red Blood Count 4.29 M/mm3 (4.2-5.4); White Blood Count 6.1 K/mm3 (4.5-10.0)
[2025-02-26] MEDS: Please enter patient height and weight for medication dosing 1 EACH XX (09:09)
[2025-02-26] MEDS: ceFAZolin 1 GM in SODIUM CHLORIDE 0.9% IV 50 ML 100 ML IVPB (09:10)
[2025-02-26 09:19] LABS: INR 1.0; Prothrombin Time 12.9 Seconds (11.1-14.7)
[2025-02-26 09:20] LABS: Partial Thromboplastin Time 32.5 Seconds (22.3-36.8)
[2025-02-26 09:24] LABS: Alanine Aminotransferase 40 U/L (6-35); Albumin Level 3.9 g/dL (3.5-5.1); Alkaline Phosphatase 66 U/L (38-126); Anion Gap 8 mmol/L (4-12); Aspartate Amino Transferase 42 U/L (14-36); Bilirubin,Total 0.6 mg/dL (0.2-1.3); Blood Urea Nitrogen 9 mg/dL (7-17); Calcium 9.0 mg/dL (8.4-10.2); Carbon Dioxide 24 mmol/L (22-30); Chloride 104 mmol/L (98-107); Estimated CRCL calculation 133 ml/min; Estimated Glomerular Filt Rate > 60; Glucose 126 mg/dL (65-110); Potassium 3.6 mmol/L (3.4-5.0); Sodium 136 mmol/L (137-145); Total Protein 7.0 g/dL (6.3-8.2)
[2025-02-26 09:39] LABS: CRP 12.7 mg/dL (<1.0)
[2025-02-26 10:03] VITALS: BP 115/70; PULSE 96; RESP 16; O2SAT 95
--- NOTE | 2025-02-26 10:04 | PC.NURSE ---
Pt attempted x2 to provide urine sample with insufficient amount of urine. Pt provided with water with approval from Dr. Phipps. Pt denies complaints at this time.
[2025-02-26 10:20] LABS: MRSA (PCR) NOT DETECTED (NOT DETECTE)
[2025-02-26] MEDS: VANCOMYCIN 1,250 MG/NS 250 ML 1,250 MG/250 ML BAG 166.67 MG IVPB ×2 (10:46→12:34)
[2025-02-26 10:48] LABS: Toxigenic C. Diff NEGATIVE (NEGATIVE)
[2025-02-26] MEDS: ACETAMINOPHEN 500 MG TABLET 1000 MG PO (10:56)
[2025-02-26 11:20] VITALS: BP 126/93; PULSE 101; RESP 17; O2SAT 100
--- NOTE | 2025-02-26 12:01 | PM.IMHP ---
H&P: HPI History of Present Illness Date/Time: 02/26/25 12:01 PMF Family History Family History Sibling Malignant neoplasm of prostate Patient's brother is Grandparent Family history of lung cancer Family history of malignant neoplasm of breast Mother Family history of heart disease in male family member before age 55 Other Family history of lymphoma Social History Social History Smoking status: Never smoker Alcohol intake: never Meds Home Medications and Allergies Allergies Allergy/AdvReac Type Severity Reaction Status Date / Time No Known Allergies Allergy Verified 02/26/25 08:27 Vital Signs Vital Signs - 24 hr 02/26/25 08:32 02/26/25 10:03 02/26/25 11:20 Temperature 98.2 F Pulse Rate 98 96 101 H Respiratory Rate 17 16 17 Blood Pressure 133/93 H 115/70 126/93 H Pulse Oximetry 100 95 100 H&P: Results Labs Labs: Short CBC 02/26/25 Range/Units 08:47 WBC 6.1 (4.5-10.0) K/mm3 Hgb 13.0 (12.0-15.0) g/dL Hct 39.4 (37.0-47.0) % Plt Count 252 (150-375) k/mm3 BMP 02/26/25 08:47 Sodium 136 L Potassium 3.6 Chloride 104 Carbon Dioxide 24 BUN 9 Creatinine 0.67 L Glucose 126 H Calcium 9.0 Liver Function 02/26/25 Range/Units 08:47 Total Bilirubin 0.6 (0.2-1.3) mg/dL AST 42 H (14-36) U/L ALT 40 H (6-35) U/L Alkaline Phosphatase 66 (38-126) U/L Albumin 3.9 (3.5-5.1) g/dL
[2025-02-26 12:24] VITALS: BMI 39.8
--- NOTE | 2025-02-26 12:25 | ADMGEN ---
This patient, Ange Irving, was admitted to [facility] Surg Room 328-01. Patient/family oriented to hospital policies and general routines including ID bracelet, bed and alarms, visiting hours, pain management, procedures, bathroom and other care routines, personal items, smoking policy, room service/diet, and visiting hours. Information on how to activate the Rapid Response Team has been discussed. Patient/Family are encouraged to report perceived risks to care and to ask questions if they do not understand what they are told or what they should do.
[2025-02-26 13:02] VITALS: O2SAT 94
--- NOTE | 2025-02-26 13:13 | P.HP_ITS ---
H&P: HPI History of Present Illness Date/Time: 02/26/25 13:13 Chief Complaint: Fever positive blood culture Narrative: 29-year-old female who presents to the ED with multiple days of body aches fatigue fever and diarrhea. She was evaluated in the ED few days ago and had a blood cultures drawn which came back positive. She continues to have low-grade fever. In the ED she was afebrile vitals were stable. She received cefazolin and vancomycin. Blood cultures were reordered and is admitted for further treatment. Review of Systems Review of Systems: - CONSTITUTIONAL: Denies weight loss, re ports fever and chills. - HEENT: Denies changes in vision and he aring - RESPIRATORY: Denies SOB and cough. - CV: Denies palpitations and CP. - GI: Denies abdominal pain, nausea, vom iting and reports diarrhea. - : Denies dysuria and urinary frequen cy. - MSK: Denies myalgia and joint pain. - SKIN: Denies rash and pruritus. - NEUROLOGICAL: Denies headache and sync ope. - PSYCHIATRIC: Denies recent changes in mood. Denies anxiety and depression. [facility] Family History Family History Sibling Malignant neoplasm of prostate Patient's brother is Grandparent Family history of lung cancer Family history of malignant neoplasm of breast Mother Family history of heart disease in male family member before age 55 Other Family history of lymphoma Social History Social History Smoking status: Never smoker Second hand tobacco smoke exposure: No Alcohol intake: never Substance use: never Lack of Transportation: No Lack of Food: Never True Current Housing: I Have Housing Concerned About Future Housing: YES Difficulty Paying Gas/Electric Bills: No Difficulty Paying for Meds: No Currently Unemployed: No Education: Bachelor's Degree Difficulty w/ Childcare or Family Care: No Spiritual care concerns: No Meds Home Medications and Allergies Allergies Allergy/AdvReac Type Severity Reaction Status Date / Time No Known Allergies Allergy Verified 02/26/25 12:42 Vital Signs Vital Signs - 24 hr 02/26/25 08:32 02/26/25 10:03 02/26/25 11:20 Temperature 98.2 F Pulse Rate 98 96 101 H Respiratory Rate 17 16 17 Blood Pressure 133/93 H 115/70 126/93 H Pulse Oximetry 100 95 100 Oxygen Delivery 02/26/25 13:02 Temperature Pulse Rate Respiratory Rate Blood Pressure Pulse Oximetry 94 Oxygen Delivery Room Air Exam Narrative: GENERAL: Well-appearing, well-nourished, and in no acute distress. HEAD: Normocephalic, atraumatic. EYES: EOMI. ENT: Nares clear, no rhinorrhea or epistaxis. Mucous membranes moist. CHEST: Clear to auscultation. No respiratory distress. No wheezes rales or rhonchi HEART: Regular rate and rhythm. No murmur heard. Normal peripheral pulses. ABDOMEN: Soft, nontender, nondistended, normal active bowel sounds. EXTREMITIES: Normal range of motion. No edema. SKIN: Warm, dry, no rash. NEURO: No focal deficits. Alert and oriented x3. PSYCH: Normal mood and affect H&P: Results Labs Labs: Short CBC 02/26/25 Range/Units 08:47 WBC 6.1 (4.5-10.0) K/mm3 Hgb 13.0 (12.0-15.0) g/dL Hct 39.4 (37.0-47.0) % Plt Count 252 (150-375) k/mm3 BMP 02/26/25 08:47 Sodium 136 L Potassium 3.6 Chloride 104 Carbon Dioxide 24 BUN 9 Creatinine 0.67 L Glucose 126 H Calcium 9.0 Liver Function 02/26/25 Range/Units 08:47 Total Bilirubin 0.6 (0.2-1.3) mg/dL AST 42 H (14-36) U/L ALT 40 H (6-35) U/L Alkaline Phosphatase 66 (38-126) U/L Albumin 3.9 (3.5-5.1) g/dL Assessment and Plan Assessment and plan (1) Diarrhea: Code(s): R19.7 - Diarrhea, unspecified Status: Acute (2) Bacteremia: Code(s): R78.81 - Bacteremia Status: Acute Plan 29-year-old female who presents to the ED with multiple days of body aches fatigue fever and diarrhea. She was evaluated in the ED few days ago and had a blood cultures drawn which came back positive. She continues to have low-grade fever. In the ED she was afebrile vitals were stable. She received cefazolin and vancomycin. Blood cultures were reordered. Laboratory studies showed WBC of 6.1 hemoglobin of 13.0 platelet count of 252. Chem panel shows sodium of 136 potassium 3.6 chloride 104 bicarbonate 24 BUN 9 creatinine 0.67 blood glucose 126 lactic acid was normal at 1 LFTs mildly elevated with AST 42 ALT 40 alkaline phosphorus 66 CRP was elevated at 12.7 recent lipase was normal. Urinalysis with urine WBC 6-10 with 1+ leukocyte esterase. Nasal MRSA is not detected C diff test was negative recent mono screen was negative influenza RSV COVID swab was negative. Chest x-ray with no acute cardiopulmonary findings Recent CT abdomen 02/24/2025 with multiple pericecal lymph nodes free fluid in the pelvis with the cystic right adnexa measuring 2.6 cm. Recent blood culture positive for Gram-negative bacilli x2. She Is admitted for further treatment. Her also had similar diarrheal illness with her. Gram-negative bacteremia likely due to recent diarrheal illness. Stool studies has been sent. Will continue to follow the cultures will change antibiotics to IV cefepime Fever and chills Possible UTI however endorses in no urinary symptoms. Recent urine culture with 25-50 K mixed urogenital sandi. Headache Toradol p.r.n. DVT prophylaxis SCDs Code status full code Hospitalist MIPS Advance Care Plan I have confirmed that the patient's Advanced Care Plan is present, code status is documented, or surrogate decision maker is listed in patient medical record.: Yes Medication Reconciliation I have utilized all available resources to obtain, update and review the patients current medications (includes all prescriptions, OTC, herbals, cannabis, and nutritional supplements).: Yes
[2025-02-26 14:00] VITALS: BP 118/74; PULSE 99; RESP 18; TEMP 37.7; O2SAT 98
[2025-02-26] MEDS: KETOROLAC 15 MG/ML VIAL (*BKC) IV PUSH ×2 (14:04→20:06)
[2025-02-26] MEDS: SODIUM CHLORIDE 0.9% IV 1,000 ML 100 ML IV CONT (14:05)
[2025-02-26] MEDS: CEFEPIME 2 GM in SODIUM CHLORIDE 0.9% IV 50 ML 100 ML IVPB ×2 (14:05→21:56)
[2025-02-26 14:33] LABS: Add Urine Microscopic? YES; Appearance Urine Cloudy (Clear); Glucose Urine UA Negative (Negative); Leukocyte Esterase Ur Trace LEU/UL (Negative); Need Manual Microscopic Reviewed; Nitrate Urine Negative (Negative); Non Pathogenic Casts 0-2; Specific Grav Ur 1.008 (1.001-1.035)
[2025-02-26] MEDS: ACETAMINOPHEN 325 MG TABLET 650 MG PO (16:31)
[2025-02-26 20:15] VITALS: BP 144/96; PULSE 92; RESP 14; TEMP 36.3; O2SAT 96
[2025-02-26] MEDS: LORazepam (*CRX) 0.5 MG TABLET 0.25 MG PO (21:56)
[2025-02-27] MEDS: SODIUM CHLORIDE 0.9% IV 1,000 ML 100 ML IV CONT ×2 (01:17→12:52)
[2025-02-27] MEDS: CEFEPIME 2 GM in SODIUM CHLORIDE 0.9% IV 50 ML 100 ML IVPB ×3 (05:30→21:16)
[2025-02-27] MEDS: KETOROLAC 15 MG/ML VIAL (*BKC) IV PUSH ×2 (05:31→14:00)
[2025-02-27 06:00] VITALS: BP 159/90; PULSE 102; RESP 18; TEMP 36.8; O2SAT 97
[2025-02-27 06:54] LABS: Estimated CRCL calculation 162 ml/min; Estimated Glomerular Filt Rate > 60
[2025-02-27] MEDS: ACETAMINOPHEN 325 MG TABLET 650 MG PO ×2 (09:44→20:30)
[2025-02-27 14:00] VITALS: BP 133/87; PULSE 88; RESP 16; TEMP 36.3; O2SAT 99
--- NOTE | 2025-02-27 16:11 | PM.IMPN ---
Progress Note: A&P Assessment and Plan (1) Diarrhea: Code(s): R19.7 - Diarrhea, unspecified Status: Acute (2) Bacteremia: Code(s): R78.81 - Bacteremia Status: Acute Plan 29-year-old female who presents to the ED with multiple days of body aches fatigue fever and diarrhea. She was evaluated in the ED few days ago and had a blood cultures drawn which came back positive. She continues to have low-grade fever. In the ED she was afebrile vitals were stable. She received cefazolin and vancomycin. Blood cultures were reordered. Laboratory studies showed WBC of 6.1 hemoglobin of 13.0 platelet count of 252. Chem panel shows sodium of 136 potassium 3.6 chloride 104 bicarbonate 24 BUN 9 creatinine 0.67 blood glucose 126 lactic acid was normal at 1 LFTs mildly elevated with AST 42 ALT 40 alkaline phosphorus 66 CRP was elevated at 12.7 recent lipase was normal. Urinalysis with urine WBC 6-10 with 1+ leukocyte esterase. Nasal MRSA is not detected C diff test was negative recent mono screen was negative influenza RSV COVID swab was negative. Chest x-ray with no acute cardiopulmonary findings Recent CT abdomen 02/24/2025 with multiple pericecal lymph nodes free fluid in the pelvis with the cystic right adnexa measuring 2.6 cm. Recent blood culture positive for Gram-negative bacilli x2. She Is admitted for further treatment. Her also had similar diarrheal illness with her. Gram-negative bacteremia likely due to recent diarrheal illness. Stool studies has been sent. Will continue to follow the cultures will change antibiotics to IV cefepime. Follow blood culture Headache persistent will get CT head. Fever and chills Possible UTI however endorses in no urinary symptoms. Recent urine culture with 25-50 K mixed urogenital sandi. Repeat UA is negative Headache Toradol p.r.n. DVT prophylaxis SCDs Code status full code Subjective Date/time seen: 02/27/25 16:11 Interval history: Patient continues to complain of headache. Per better than yesterday. Had a spike of fever yesterday. Not much chills at night. Diarrhea still present but better Review of Systems Review of Systems: All systems reviewed & are unremarkable except as noted in HPI and below Exam Narrative: GENERAL: Well-appearing, well-nourished, and in no acute distress. HEAD: Normocephalic, atraumatic. EYES: EOMI. ENT: Nares clear, no rhinorrhea or epistaxis. Mucous membranes moist. CHEST: Clear to auscultation. No respiratory distress. No wheezes rales or rhonchi HEART: Regular rate and rhythm. No murmur heard. Normal peripheral pulses. ABDOMEN: Soft, nontender, nondistended, normal active bowel sounds. EXTREMITIES: Normal range of motion. No edema. SKIN: Warm, dry, no rash. NEURO: No focal deficits. Alert and oriented x3. PSYCH: Normal mood and affect Objective Data Vital Signs Vital Signs: Vital Signs - 24 hr 02/26/25 20:00 02/26/25 20:15 02/27/25 06:00 Temperature 97.4 F L 98.3 F Pulse Rate 92 102 H Respiratory Rate 14 18 Blood Pressure 144/96 H 159/90 H Pulse Oximetry 96 97 Oxygen Delivery Room Air 02/27/25 08:00 02/27/25 14:00 Temperature 97.3 F L Pulse Rate 88 Respiratory Rate 16 Blood Pressure 133/87 Pulse Oximetry 99 Oxygen Delivery Room Air Intake/Output Intake/Output: Intake & Output 02/24/25 02/25/25 02/26/25 02/27/25 23:59 23:59 23:59 23:59 Intake Total 690 2408 Balance 690 2408 Meds/Results Medications: Active Medications Generic Name Dose Route Start Last Admin Trade Name Freq PRN Reason Stop Dose Admin Acetaminophen 650 mg 02/26/25 16:11 02/27/25 09:44 Acetaminophen 325 Mg Tablet PO 650 mg Q4H PRN Administration Headache Cefepime HCl 2 gm/ Sodium 50 mls @ 100 mls/hr 02/26/25 14:00 02/27/25 13:57 Chloride IVPB 100 mls/hr Q8HR KAMERON Administration Sodium Chloride 1,000 mls @ 100 mls/hr 02/26/25 13:35 02/27/25 12:52 Normal Saline Iv IV CONT 100 mls/hr .Q10H KAMERON Administration Ketorolac Tromethamine 15 mg 02/26/25 13:33 02/27/25 14:00 Ketorolac 15 Mg/Ml Vial (*Bkc) IV PUSH 15 mg Q6H PRN Administration Pain Rated 4-6 Lorazepam 0.25 mg 02/26/25 21:43 02/26/25 21:56 Lorazepam (*Crx) 0.5 Mg Tablet PO 0.25 mg ONCE PRN Administration Anxiety Morphine Sulfate 2 mg 02/27/25 14:25 Morphine Sulfate (*Crx) 4 Mg/Ml Inj IV PUSH Q4H PRN Pain Rated 7-10 Radiology Results: ITS Impressions Chest X-Ray 02/26/25 10:05 IMPRESSION: 1. No acute cardiopulmonary findings. Labs Labs: Laboratory Results - last 24 hr 02/27/25 05:28 Creatinine 0.54 L Estim Creat Clear Calc 162 Estimated GFR > 60
[2025-02-27 21:34] VITALS: BP 122/79; PULSE 102; RESP 17; TEMP 36.3; O2SAT 98
[2025-02-28] MEDS: SODIUM CHLORIDE 0.9% IV 1,000 ML 100 ML IV CONT ×2 (01:18→11:55)
[2025-02-28] MEDS: CEFEPIME 2 GM in SODIUM CHLORIDE 0.9% IV 50 ML 100 ML IVPB ×2 (05:11→13:01)
[2025-02-28 06:00] VITALS: BP 115/74; PULSE 79; RESP 14; TEMP 36.5; O2SAT 98
[2025-02-28 06:47] LABS: Hematocrit 34.8 % (37.0-47.0); Hemoglobin 11.5 g/dL (12.0-15.0); Immature Granulocyte Percent A 0.7 % (0-0.5); Lymphocytes Absolute Auto 2.41 K/mm3 (0.9-3.2); Mean Corpuscular HGB Conc 33.0 g/dl (32-36); Mean Corpuscular Hemoglobin 30.7 pg (26-34); Mean Corpuscular Volume 93.0 fl (80-100); Nucleated Red Blood Cells Absolute Auto 0.000 K/mm3 (0.0-0.012); Nucleated Red Blood Cells Perc 0.0 % (0.0-0.2); Platelet Count Result 257 k/mm3 (150-375); Red Blood Count 3.74 M/mm3 (4.2-5.4); White Blood Count 6.0 K/mm3 (4.5-10.0)
[2025-02-28 07:35] LABS: Alanine Aminotransferase 34 U/L (6-35); Albumin Level 3.2 g/dL (3.5-5.1); Alkaline Phosphatase 54 U/L (38-126); Anion Gap 4 mmol/L (4-12); Aspartate Amino Transferase 36 U/L (14-36); Bilirubin,Total 0.3 mg/dL (0.2-1.3); Blood Urea Nitrogen 8 mg/dL (7-17); Calcium 8.5 mg/dL (8.4-10.2); Carbon Dioxide 27 mmol/L (22-30); Chloride 106 mmol/L (98-107); Estimated CRCL calculation 155 ml/min; Estimated Glomerular Filt Rate > 60; Glucose 96 mg/dL (65-110); Magnesium 2.1 mg/dL (1.6-2.3); Potassium 4.0 mmol/L (3.4-5.0); Sodium 137 mmol/L (137-145); Total Protein 5.9 g/dL (6.3-8.2)
[2025-02-28] MEDS: ACETAMINOPHEN 325 MG TABLET 650 MG PO ×2 (08:16→13:02)
[2025-02-28 13:42] VITALS: BP 124/74; PULSE 95; RESP 16; TEMP 36.3; O2SAT 99
--- NOTE | 2025-02-28 14:04 | ECG_ITS ---
Test Date: 2025-02-28 14:21:12 Measurements Intervals [place] Rate: 91 P: 37 [place]: 137 QRS: 6 QRSD: 82 T: 8 QT: 349 QTc: 431 Interpretive Statements SINUS RHYTHM BORDERLINE T WAVE ABNORMALITY- ANT/INF LEADS BORDERLINE ECG Compared to ECG 02/24/2025 19:57:15 HEART RATE HAS DECREASED Electronically Signed On 02-28-2025 14:53:54 CDT by Jad Duke D.O.
--- NOTE | 2025-02-28 14:25 | P.PNIM_ITS ---
Progress Note: A&P Assessment and Plan (1) Diarrhea: Code(s): R19.7 - Diarrhea, unspecified Status: Acute (2) Bacteremia: Code(s): R78.81 - Bacteremia Status: Acute Plan 29-year-old female who presents to the ED with multiple days of body aches fatigue fever and diarrhea. She was evaluated in the ED few days ago and had a blood cultures drawn which came back positive. She continues to have low-grade fever. In the ED she was afebrile vitals were stable. She received cefazolin and vancomycin. Blood cultures were reordered. Laboratory studies showed WBC of 6.1 hemoglobin of 13.0 platelet count of 252. Chem panel shows sodium of 136 potassium 3.6 chloride 104 bicarbonate 24 BUN 9 creatinine 0.67 blood glucose 126 lactic acid was normal at 1 LFTs mildly elevated with AST 42 ALT 40 alkaline phosphorus 66 CRP was elevated at 12.7 recent lipase was normal. Urinalysis with urine WBC 6-10 with 1+ leukocyte esterase. Nasal MRSA is not detected C diff test was negative recent mono screen was negative influenza RSV COVID swab was negative. Chest x-ray with no acute cardiopulmonary findings Recent CT abdomen 02/24/2025 with multiple pericecal lymph nodes free fluid in the pelvis with the cystic right adnexa measuring 2.6 cm. Recent blood culture positive for Gram-negative bacilli x2. She Is admitted for further treatment. Her also had similar diarrheal illness with her. Gram-negative bacteremia likely due to recent diarrheal illness. Stool studies has been sent. Will continue to follow the cultures will change antibiotics to IV cefepime. Culture positive salmonella. Will continue with cefepime. Repeat EKG to check QTC for potential levofloxacin therapy. Await culture finalization before transition to levofloxacin. Will need 10-14 days course. Headache persistent CT head is negative Fever and chills Possible UTI however endorses in no urinary symptoms. Recent urine culture with 25-50 K mixed urogenital sandi. Repeat UA is negative Headache Toradol p.r.n. DVT prophylaxis SCDs Code status full code Subjective Date/time seen: 02/28/25 14:25 Interval history: Headache is better CT head reviewed. Culture reviewed with the patient. Review of Systems Review of Systems: All systems reviewed & are unremarkable except as noted in HPI and below Exam Narrative: GENERAL: Well-appearing, well-nourished, and in no acute distress. HEAD: Normocephalic, atraumatic. EYES: EOMI. ENT: Nares clear, no rhinorrhea or epistaxis. Mucous membranes moist. CHEST: Clear to auscultation. No respiratory distress. No wheezes rales or rhonchi HEART: Regular rate and rhythm. No murmur heard. Normal peripheral pulses. ABDOMEN: Soft, nontender, nondistended, normal active bowel sounds. EXTREMITIES: Normal range of motion. No edema. SKIN: Warm, dry, no rash. NEURO: No focal deficits. Alert and oriented x3. PSYCH: Normal mood and affect Objective Data Vital Signs Vital Signs: Vital Signs - 24 hr 02/27/25 20:00 02/27/25 21:34 02/28/25 06:00 Temperature 97.3 F L 97.7 F Pulse Rate 102 H 79 Respiratory Rate 17 14 Blood Pressure 122/79 115/74 Pulse Oximetry 98 98 Oxygen Delivery Room Air 02/28/25 08:00 02/28/25 13:42 Temperature 97.3 F L Pulse Rate 95 Respiratory Rate 16 Blood Pressure 124/74 Pulse Oximetry 99 Oxygen Delivery Room Air Intake/Output Intake/Output: Intake & Output 02/25/25 02/26/25 02/27/25 02/28/25 23:59 23:59 23:59 23:59 Intake Total 690 3468 2830 Balance 690 3468 2830 Meds/Results Medications: Active Medications Generic Name Dose Route Start Last Admin Trade Name Freq PRN Reason Stop Dose Admin Acetaminophen 650 mg 02/26/25 16:11 02/28/25 13:02 Acetaminophen 325 Mg Tablet PO 650 mg Q4H PRN Administration Headache Cefepime HCl 2 gm/ Sodium 50 mls @ 100 mls/hr 02/26/25 14:00 02/28/25 13:01 Chloride IVPB 100 mls/hr Q8HR KAMERON Administration Ketorolac Tromethamine 15 mg 02/26/25 13:33 02/27/25 14:00 Ketorolac 15 Mg/Ml Vial (*Bkc) IV PUSH 15 mg Q6H PRN Administration Pain Rated 4-6 Lorazepam 0.25 mg 02/26/25 21:43 02/26/25 21:56 Lorazepam (*Crx) 0.5 Mg Tablet PO 0.25 mg ONCE PRN Administration Anxiety Morphine Sulfate 2 mg 02/27/25 14:25 Morphine Sulfate (*Crx) 4 Mg/Ml Inj IV PUSH Q4H PRN Pain Rated 7-10 Radiology Results: ITS Impressions Chest X-Ray 02/26/25 10:05 IMPRESSION: 1. No acute cardiopulmonary findings. Head CT 02/27/25 17:06 Impression: 1.No acute intracranial abnormality. Labs Labs: Laboratory Results - last 24 hr 02/27/25 02/28/25 20:47 06:16 WBC 6.0 RBC 3.74 L Hgb 11.5 L Hct 34.8 L MCV 93.0 MCH 30.7 MCHC 33.0 RDW 12.5 Plt Count 257 MPV 8.9 Immature Gran % (Auto) 0.7 H Neut % (Auto) 48.4 Lymph % (Auto) 40.4 [place] % (Auto) 9.0 H Eos % (Auto) 1.2 Baso % (Auto) 0.3 Lymph # (Auto) 2.41 [place] # (Auto) 0.5 Eos # (Auto) 0.1 Baso # (Auto) 0.0 Abs Immat Gran (auto) 0.04 H Absolute Neuts (auto) 2.9 Absolute Nucleated RBC 0.000 Nucleated RBC % 0.0 Sodium 137 Potassium 4.0 Chloride 106 Carbon Dioxide 27 Anion Gap 4 BUN 8 Creatinine 0.57 L Estim Creat Clear Calc 155 Estimated GFR > 60 Glucose 96 Calcium 8.5 Magnesium 2.1 Total Bilirubin 0.3 AST 36 ALT 34 Alkaline Phosphatase 54 Total Protein 5.9 L Albumin 3.2 L Vancomycin Trough < 5.0 L
--- NOTE | 2025-02-28 16:48 | PM.DS ---
DS: Admitting Diagnosis Discharge Date 02/28/2025 Admitting Diagnosis Bacteremia DS: Discharge Diagnosis Discharge Diagnosis (1) Diarrhea: Code(s): R19.7 - Diarrhea, unspecified Status: Acute (2) Bacteremia: Code(s): R78.81 - Bacteremia Status: Acute DS: Summary Hospital Course Hospital Course: 29-year-old female who presents to the ED with multiple days of body aches fatigue fever and diarrhea. She was evaluated in the ED few days ago and had a blood cultures drawn which came back positive. She continues to have low-grade fever. In the ED she was afebrile vitals were stable. She received cefazolin and vancomycin. Blood cultures were reordered. Laboratory studies showed WBC of 6.1 hemoglobin of 13.0 platelet count of 252. Chem panel shows sodium of 136 potassium 3.6 chloride 104 bicarbonate 24 BUN 9 creatinine 0.67 blood glucose 126 lactic acid was normal at 1 LFTs mildly elevated with AST 42 ALT 40 alkaline phosphorus 66 CRP was elevated at 12.7 recent lipase was normal. Urinalysis with urine WBC 6-10 with 1+ leukocyte esterase. Nasal MRSA is not detected C diff test was negative recent mono screen was negative influenza RSV COVID swab was negative. Chest x-ray with no acute cardiopulmonary findings Recent CT abdomen 02/24/2025 with multiple pericecal lymph nodes free fluid in the pelvis with the cystic right adnexa measuring 2.6 cm. Recent blood culture positive for Gram-negative bacilli x2. She Is admitted for further treatment. Her also had similar diarrheal illness with her. Gram-negative bacteremia likely due to recent diarrheal illness. Stool studies has been sent. Will continue to follow the cultures. Changed antibiotics to IV cefepime. Culture positive salmonella. Continue on cefepime.. Repeat EKG to check QTC for potential levofloxacin therapy. With QTC came back at 431 amenable for fluoroquinolones therapy. Culture came back with salmonella sensitive to ciprofloxacin ampicillin and ceftriaxone resistant to Bactrim. Will switch to Cipro for 7 more days with a total duration of treatment of [address] head is negative Fever and chills Possible UTI however endorses in no urinary symptoms. Recent urine culture with 25-50 K mixed urogenital sandi. Repeat UA is negative Headache Toradol p.r.n. DVT prophylaxis SCDs Code status full code Time Spent with Patient Time attestation: Total time spent providing and/or coordinating discharge services: Exam Narrative: GENERAL: Well-appearing, well-nourished, and in no acute distress. HEAD: Normocephalic, atraumatic. EYES: EOMI. ENT: Nares clear, no rhinorrhea or epistaxis. Mucous membranes moist. CHEST: Clear to auscultation. No respiratory distress. No wheezes rales or rhonchi HEART: Regular rate and rhythm. No murmur heard. Normal peripheral pulses. ABDOMEN: Soft, nontender, nondistended, normal active bowel sounds. EXTREMITIES: Normal range of motion. No edema. SKIN: Warm, dry, no rash. NEURO: No focal deficits. Alert and oriented x3. PSYCH: Normal mood and affect DS: Data Data Completed and Pending Labs on day of discharge: Labs from last 24 hours 02/28/25 02/27/25 06:16 20:47 WBC 6.0 RBC 3.74 L Hgb 11.5 L Hct 34.8 L MCV 93.0 MCH 30.7 MCHC 33.0 RDW 12.5 Plt Count 257 MPV 8.9 Immature Gran % (Auto) 0.7 H Neut % (Auto) 48.4 Lymph % (Auto) 40.4 [place] % (Auto) 9.0 H Eos % (Auto) 1.2 Baso % (Auto) 0.3 Lymph # (Auto) 2.41 [place] # (Auto) 0.5 Eos # (Auto) 0.1 Baso # (Auto) 0.0 Abs Immat Gran (auto) 0.04 H Absolute Neuts (auto) 2.9 Absolute Nucleated RBC 0.000 Nucleated RBC % 0.0 Sodium 137 Potassium 4.0 Chloride 106 Carbon Dioxide 27 Anion Gap 4 BUN 8 Creatinine 0.57 L Estim Creat Clear Calc 155 Estimated GFR > 60 Glucose 96 Calcium 8.5 Magnesium 2.1 Total Bilirubin 0.3 AST 36 ALT 34 Alkaline Phosphatase 54 Total Protein 5.9 L Albumin 3.2 L Vancomycin Trough < 5.0 L Preliminary micro results at discharge 02/27/25 10:00 Stool for WBCs - Preliminary Stool Imaging Radiologist's impression: ITS Impressions Chest X-Ray 02/26/25 10:05 IMPRESSION: 1. No acute cardiopulmonary findings. Head CT 02/27/25 17:06 Impression: 1.No acute intracranial abnormality. Discharge Plan Discharge Attending physician on discharge: Hernando Amos Discharging Clinician: Hernando Amos Anticipated Discharge Date/Time: 02/28/25 16:45 Patient Disposition: Home Activity: as tolerated Diet: heart healthy Patient Instructions: Antibiotic Form Patient Language: Citizen Of [place] Stand Alone Forms: General Discharge Information Follow-up/Referrals: PHYSICIAN,D[employer]ER OPERATOR [Primary Care Provider, Internal Medicine] - 1 Week Discharge Medications: New ciprofloxacin HCl 500 mg tablet 500 mg PO Q12H Qty: 14 0RF No Action No Home Medications Date of admission: 02/27/25 11:59 Primary Care Provider: PHYSICIAN,D[employer] SP[employer]ER OPERATOR Admitting Provider: Mary Ferrer Attending physician on admission: Mary Ferrer Condition: Serious
== END 2025-02-28 17:25 | disposition home or self-care (01) | DRG 372 ==
LOC: ANHED 08:46 → ANH3MEDSUR 10:16
PROVIDERS: Admitting Provider Internal Medicine; Emergency Provider Emergency Medicine; Visit Provider Internal Medicine
DX: A02.0 Salmonella enteritis (principal); R78.81 Bacteremia; R19.7 Diarrhea, unspecified; B96.89 Other specified bacterial agents as the cause of diseases classified elsewhere
CPT/HCPCS: 36415; 70450; 71046; 80053; 80202; 81001; 82565; 83605; 83735; 85025; 85610; 85730; 86140; 87040; 87045; 87046; 87427; 87493; 87507; 87641; 87798; 93005; 96365; 96375; 99285; A9270; G0378; J0690; J0692; J1885; J3373; J7030